=== PATIENT | female | born 1965 | race Caucasian/White ===

== ENCOUNTER → 2017-11-11 11:54 | Outpatient (CLI) | payer OTHER, SELFPAY ==
--- NOTE | 2017-11-11 11:59 | RAD_ITS ---
STUDY: X-RAY CHEST REASON FOR EXAM: Female, 51 years old. Cough TECHNIQUE: PA and lateral views of the chest. COMPARISON: Previous study of 06/07/2016 FINDINGS: There is a 1.0 cm right upper lobe nodule, stable in the interval. There is an additional nodule overlying the anterior cardiac silhouette on the lateral view only measuring approximately 0.9 cm, also stable in the interval. No additional nodules were evident. There is no demonstrated pleural abnormality. Normal size heart. Normal mediastinum and yessy. Normal visualized pulmonary arteries. Normal visualized aortic arch and descending thoracic aorta. There are diffuse degenerative changes of the visualized thoracic spine. A fusion plate is seen in the lower cervical region. There is no demonstrated abnormality of the visualized soft tissue structures of the upper abdomen. RAD/Chest PA and Lateral IMPRESSION: Only 2 nodules are seen on the current study, one located in the right upper lobe and the second overlying the cardiac silhouette on the lateral view. These are stable in the interval. Anterior fusion plate seen in the lower cervical region. There are mild degenerative changes of the thoracic spine. Electronically Signed: Varun Barrow MD at 16:55 EDT , Service support ,
[2017-11-11 15:40] LABS: Anion Gap 8 (5-15); BUN 15 mg/dL (7-18); BUN/Creat Ratio 16.7 RATIO (10-20); Calcium,Total 8.2 mg/dL (8.5-10.1); Chloride 103 mmol/L (98-107); EST Glomerular Filtration Rate 71 mL/min (>60); Est Glom Filt Rate - Afr Amer 85 mL/min (>60); Glucose 95 mg/dL (74-106); Potassium 3.4 mmol/L (3.5-5.1); Sodium Level 138 mmol/L (136-145)
== END ==
PROVIDERS: Family Provider Family Medicine; PCP Family Medicine; Visit Provider Internal Medicine Pulmonary Disease
DX: R05 Cough (principal)
CPT/HCPCS: 36415; 71046; 80048

== ENCOUNTER → 2017-11-11 16:18 | Outpatient (CLI) | payer OTHER, SELFPAY ==
[2017-11-16 11:38] LABS: HPV Reflexed? NOT INDICATED
== END ==
PROVIDERS: Family Provider Family Medicine; PCP Family Medicine; Visit Provider Family Medicine
DX: Z12.4 Encounter for screening for malignant neoplasm of cervix (principal)
CPT/HCPCS: 88175; G0145

== ENCOUNTER → 2017-11-21 16:31 | Outpatient (CLI) | payer OTHER, SELFPAY ==
--- NOTE | 2017-11-21 16:34 | HPBI_ITS ---
MAMMOGRAPHY - BILATERAL SCREENING 3-D VLAD SYNTHESIS REASON FOR EXAM: Female, 51 years old. Bilateral Screening 3-D tomosynthesis PERTINENT HISTORY: Family history of breast carcinoma, sister age 38, mother age 67 and maternal grandmother age 82. TECHNIQUE: 2-D mammograms and 3-D Vlad synthesis of the breast (s) were performed. CAD was performed. COMPARISON: Mammogram 09/21/2016. FINDINGS: The breast composition is heterogeneously dense. Scattered benign calcifications are seen. No dense spiculated masses or suspicious abnormal microcalcification clusters are identified. No architectural distortion is identified. There is no adenopathy, skin thickening or nipple retraction. No significant abnormality noted with tomosynthesis imaging. There has been no significant change since the prior study. HPBI/SCREENING MAMM (CAD), BILAT IMPRESSION: No mammographic signs of malignancy. Routine yearly mammograms recommended. ASSESSMENT CATEGORY: BIRADS Category 2: Benign. A letter regarding these results will be sent to the patient by the facility within 30 days. FOLLOW UP RECOMMENDATION: Yearly follow up mammogram recommended. (A) Approximately 10% of breast cancers are not detected by mammography. A normal mammogram should not delay biopsy of a clinically suspicious abnormality. Electronically Signed: Arpan Gann, at 19:00 EDT Tel , Service support ,
== END ==
PROVIDERS: Family Provider Family Medicine; PCP Family Medicine; Visit Provider Family Medicine
DX: Z12.31 Encounter for screening mammogram for malignant neoplasm of breast (principal)
CPT/HCPCS: 77063; 77067

== ENCOUNTER → 2019-09-11 10:37 | Outpatient (CLI) | payer OTHER, SELFPAY ==
[2019-09-11 12:17] LABS: Absolute Lymphocyte Count 1.93 X10^3/uL (0.83-4.51); Absolute Neutrophil Count 4.7 X10^3/uL (2.0-7.7); Basophil# 0.03 X10^3/uL; Basophil% 0.4 % (0-1); Eosinophil# 0.12 X10^3/uL; Eosinophils% 1.6 % (0-5); Hemoglobin 14.4 g/dL (12.0-15.0); Lymphocyte # 1.93 X10^3/ul (4.0); Lymphocyte % 26.4 % (19-41); Mean Corp Hgb Conc 32.7 g/dL (32-36); Mean Corpuscular Hgb 29.1 pg (27.0-32.0); Mean Corpuscular Volume 89.1 fL (81-99); Mean Platelet Vol. 9.5 fl (6.2-12.0); Monocyte# 0.47 X10^3/uL; Monocyte% 6.4 % (0-10); NRBC Flagged by Analyzer 0 % (0-5); Neutrophil # 4.72 X10^3/uL (2.7-7.7); Neutrophil % 64.8 % (47-70); Platelet Count 310 K/mm3 (150-450); RBC Distribution Width CV 13.3 % (11.6-14.6); RBC Distribution Width SD 43.5 fl (35.1-43.9); Red Blood Count 4.94 M/mm3 (4.2-5.4); White Blood Count 7.3 K/mm3 (4.4-11.0)
[2019-09-11 12:44] LABS: Vitamin B12 447 pg/mL (211-911)
[2019-09-11 12:57] LABS: Anion Gap 6 (5-15); BUN 12 mg/dL (7-18); BUN/Creat Ratio 11.7 RATIO (10-20); Chloride 103 mmol/L (98-107); Creatinine, Serum 1.03 mg/dL (0.55-1.02); EST Glomerular Filtration Rate 60 mL/min (>60); Est Glom Filt Rate - Afr Amer 72 mL/min (>60); Glucose 90 mg/dL (74-106); Potassium 3.8 mmol/L (3.5-5.1); Sodium Level 138 mmol/L (136-145)
== END ==
PROVIDERS: Family Provider Family Medicine; PCP Family Medicine; Referring Provider Family Medicine; Visit Provider Family Medicine
DX: I10 Essential (primary) hypertension (principal); D51.0 Vitamin B12 deficiency anemia due to intrinsic factor deficiency
CPT/HCPCS: 36415; 80048; 82607; 85025

== ENCOUNTER → 2019-09-11 13:39 | Outpatient (CLI) | payer OTHER, SELFPAY ==
--- NOTE | 2019-09-11 13:42 | BI_ITS ---
MAMMOGRAPHY - BILATERAL SCREENING REASON FOR EXAM: Female, 53 years old. Routine annual screening examination. PERTINENT HISTORY: Sister with breast cancer. Mother with breast cancer. Grandmother with breast cancer. TECHNIQUE: Digital bilateral breast vlad (3D mammographic acquisition) in the CC and MLO projections. 2-D mediolateral oblique (MLO) and craniocaudad (CC) views of both breasts were obtained. CAD: Full Field Digital Mammography with Computer Added Detection was performed. COMPARISON: Comparison is made with prior study dated November 21, 2017 and September 21, 2016. FINDINGS: Breast Composition: The breasts are heterogeneously dense, which may obscure small masses. There are no dominant masses or suspicious calcifications. Stable benign appearing bilateral axillary lymph nodes. No other significant abnormalities are identified. There has been no significant change since the prior study. BI/SCREEN MAMM (CAD) W/VLAD BILAT IMPRESSION: Stable bilateral screening mammogram. Yearly follow-up mammogram recommended. (A) ASSESSMENT CATEGORY: BIRADS Category 2: Benign. A letter regarding these results will be sent to the patient by the facility within 30 days. Approximately 10% of breast cancers are not detected by mammography. A normal mammogram should not delay biopsy of a clinically suspicious abnormality. [id number] Electronically Signed: Artis Rodriguez, at 15:10 EST , Service support ,
== END ==
PROVIDERS: Family Provider Family Medicine; PCP Family Medicine; Referring Provider Family Medicine; Visit Provider Family Medicine
DX: Z12.31 Encounter for screening mammogram for malignant neoplasm of breast (principal)
CPT/HCPCS: 77063; 77067

== ENCOUNTER → 2020-11-28 11:46 | Outpatient (CLI) | payer OTHER, SELFPAY ==
[2020-11-28 15:15] LABS: Absolute Lymphocyte Count 1.99 X10^3/uL (0.83-4.51); Absolute Neutrophil Count 3.7 X10^3/uL (2.0-7.7); Basophil# 0.03 X10^3/uL; Basophil% 0.5 % (0-1); Eosinophil# 0.11 X10^3/uL; Eosinophils% 1.8 % (0-5); Hematocrit 41.8 % (37-47); Hemoglobin 13.5 g/dL (12.0-15.0); Lymphocyte # 1.99 X10^3/ul (4.0); Lymphocyte % 31.8 % (19-41); Mean Corp Hgb Conc 32.3 g/dL (32-36); Mean Corpuscular Hgb 29.9 pg (27.0-32.0); Mean Corpuscular Volume 92.7 fL (81-99); Mean Platelet Vol. 9.4 fl (6.2-12.0); Monocyte# 0.41 X10^3/uL; Monocyte% 6.6 % (0-10); NRBC Flagged by Analyzer 0 % (0-5); Neutrophil # 3.67 X10^3/uL (2.7-7.7); Neutrophil % 58.7 % (47-70); Platelet Count 302 K/mm3 (150-450); RBC Distribution Width CV 12.7 % (11.6-14.6); RBC Distribution Width SD 43.7 fl (35.1-43.9); Red Blood Count 4.51 M/mm3 (4.2-5.4); White Blood Count 6.3 K/mm3 (4.4-11.0)
[2020-11-28 15:27] LABS: Anion Gap 7 (5-15); BUN 16 mg/dL (7-18); BUN/Creat Ratio 17.1 RATIO (10-20); Calcium,Total 9.3 mg/dL (8.5-10.1); Chloride 103 mmol/L (98-107); Cholesterol 202 mg/dL (200); Creatinine, Serum 0.94 mg/dL (0.55-1.02); EST Glomerular Filtration Rate 66 mL/min (>60); Est Glom Filt Rate - Afr Amer 80 mL/min (>60); Glucose 99 mg/dL (74-106); High Density Lipoprotein 51 mg/dL; Potassium 3.9 mmol/L (3.5-5.1); Sodium Level 140 mmol/L (136-145); Triglycerides 151 mg/dL; Very Low Density Lipoprotein 30 mg/dL (5-40)
[2020-11-28 15:35] LABS: Vitamin B12 380 pg/mL (211-911)
[2020-11-28 15:52] LABS: Microalbumin,Random Urine < 5.0 mg/L (NO RANGE EST.)
[2020-12-02 17:01] LABS: HPV Reflexed? NOT INDICATED
== END ==
PROVIDERS: PCP Family Medicine; Referring Provider Family Medicine; Visit Provider Family Medicine
DX: I10 Essential (primary) hypertension (principal); D51.0 Vitamin B12 deficiency anemia due to intrinsic factor deficiency
CPT/HCPCS: 36415; 80048; 80061; 82043; 82570; 82607; 85025; 88175; G0145

== ENCOUNTER → 2021-01-23 08:26 | Outpatient (CLI) | payer OTHER, SELFPAY ==
--- NOTE | 2021-01-23 08:28 | BI_ITS ---
MAMMOGRAPHY - BILATERAL SCREENING REASON FOR EXAM: Female, 55 years old. Routine annual screening examination. PERTINENT HISTORY: Sister with breast cancer. Mother with breast cancer. Grandmother with breast cancer. TECHNIQUE: Digital bilateral breast vlad (3D mammographic acquisition) in the CC and MLO projections. 2-D mediolateral oblique (MLO) and craniocaudad (CC) views of both breasts were obtained. CAD: Full Field Digital Mammography with Computer Added Detection was performed. COMPARISON: Comparison is made with prior study dated 09/11/2019 and 11/21/2017. FINDINGS: Breast Composition: The breasts are heterogeneously dense, which may obscure small masses. There are no dominant masses or suspicious calcifications. Stable small bilateral axillary lymph nodes. No other significant abnormalities are identified. There has been no significant change since the prior study. BI/SCRN MAMM (CAD)W/VLAD BILAT IMPRESSION: Stable bilateral screening mammogram. Yearly follow-up mammogram recommended. (A) ASSESSMENT CATEGORY: BIRADS Category 2: Benign. A letter regarding these results will be sent to the patient by the facility within 30 days. Approximately 10% of breast cancers are not detected by mammography. A normal mammogram should not delay biopsy of a clinically suspicious abnormality. [id number] Electronically Signed: Artis Rodriguez MD at 11:02 EDT , Service support ,
== END ==
PROVIDERS: PCP Family Medicine; Referring Provider Family Medicine; Visit Provider Family Medicine
DX: Z12.31 Encounter for screening mammogram for malignant neoplasm of breast (principal)
CPT/HCPCS: 77063; 77067

== ENCOUNTER → 2022-01-29 | Outpatient (CLI) | payer OTHER, SELFPAY ==
--- NOTE | 2022-01-29 15:52 | BI_ITS ---
MAMMOGRAPHY - BILATERAL SCREENING REASON FOR EXAM: Female, 56 years old. Routine annual screening examination. PERTINENT HISTORY: Sister with breast cancer. Mother with breast cancer. Grandmother with breast cancer. TECHNIQUE: Digital bilateral breast viktoria (3D mammographic acquisition) in the CC and MLO projections. 2-D mediolateral oblique (MLO) and craniocaudad (CC) views of both breasts were obtained. CAD: Full Field Digital Mammography with Computer Added Detection was performed. COMPARISON: Comparison is made with prior study dated 01/23/2021 and 09/11/2019 FINDINGS: Breast Composition: The breasts are heterogeneously dense, which may obscure small masses. There are no dominant masses or suspicious calcifications. Stable small benign-appearing axillary lymph nodes. No other significant abnormalities are identified. There has been no significant change since the prior study. BI/SCREENING MAMM (CAD), BILAT IMPRESSION: Stable bilateral screening mammogram. Yearly follow-up mammogram recommended. (A) ASSESSMENT CATEGORY: BIRADS Category 2: Benign. A letter regarding these results will be sent to the patient by the facility within 30 days. Approximately 10% of breast cancers are not detected by mammography. A normal mammogram should not delay biopsy of a clinically suspicious abnormality. [id number] Electronically Signed: Artis Rodriguez MD at 8:09 EDT ,
== END | disposition home or self-care (01) ==
LOC: OPBI 15:51
PROVIDERS: PCP Family Medicine; Referring Provider Family Medicine; Visit Provider Family Medicine
DX: Z12.31 Encounter for screening mammogram for malignant neoplasm of breast (principal); Z80.3 Family history of malignant neoplasm of breast
CPT/HCPCS: 77067

== ENCOUNTER 2023-01-31 20:16 | Observation (INO) | payer OTHER, SELFPAY ==
[2023-01-31] VITALS (11 sets, daily range): BP systolic 104–167; BP diastolic 67–95; PULSE 80–106; RESP 14–18; TEMP 36.6–36.7; O2SAT 94–99; BMI 37.1
--- NOTE | 2023-01-31 20:37 | CT_ITS ---
INDICATION: rectal bleeding EXAMINATION: CT ABDOMEN AND PELVIS WITH CONTRAST - CT Abdomen And Pelvis W/ Contrast Injection TECHNIQUE: Helically acquired images were obtained of the abdomen and pelvis following IV contrast. A radiation dose optimization technique was used for this scan. IV Contrast dosage and agent: 100 cc of Isovue-[id number]. Oral contrast: None. COMPARISON: September 22, 2017 CT abdomen and pelvis. FINDINGS: LOWER CHEST: 1 mm partially calcified granuloma lingula was present on the 2018 exam and represents a benign finding. There are a few pulmonary cysts seen in the bilateral lower lobes, also unchanged compared to prior CT abdomen and pelvis from 2018. These the heart is normal size. No pericardial effusion. Distal esophagus is normal in appearance. Extrathoracic soft tissues of the lower chest are within normal limits. LIVER: Homogeneous. No focal mass. GALLBLADDER AND BILIARY TREE: No calcified gallstones. No gallbladder distension or wall edema. No intra- or extrahepatic biliary ductal dilation. PANCREAS: No focal cystic or solid mass. SPLEEN: Normal size without focal cystic or solid mass. 10mm diameter calcification in the splenic hilum likely represents a small calcified aneurysm. ADRENAL GLANDS: No nodules. KIDNEYS, URETERS and BLADDER: Cortical defect in superior pole right kidney suggesting remote infection and/or trauma. Early excretion of contrast bilaterally versus less likely calcifications superior pole right kidney. Bladder is unremarkable. PERITONEUM: No ascites or free air. No other fluid collection. BOWEL: No evidence of acute appendicitis. No abnormally distended bowel loops or air fluid levels. No wall thickening or mass. No focal inflammatory changes. Anastomotic sutures seen in the ascending right colon. Scattered diverticuli seen in the sigmoid colon. No active inflammation. LYMPH NODES: No enlarged mesenteric or retroperitoneal lymph nodes. VESSELS: Aorta is non-dilated. REPRODUCTIVE ORGANS: Female pelvic organs are within normal limits of the exam. ABDOMINAL WALL: No discrete abdominal or pelvic wall hernia. BONES: No lytic or blastic abnormality. Degenerative changes spine, most notably at L5-S1. CT/Abdomen/Pelvis W IV Cont ONLY IMPRESSION: Sigmoid colon diverticulosis without diverticulitis. Anastomotic sutures descending right colon. No acute intra-abdominal pathology. Electronically Signed: Manoj Sparks DO at 22:21 EDT ,
--- NOTE | 2023-01-31 20:38 | ED.VIS.GI ---
HPI HPI - GI History of Present Illness Chief Complaint: GI Bleed Detail of Chief Complaint: Rectal bleeding Informant: patient Narrative Narrative: Patient presents to the emergency department complaint of rectal bleeding that started today. Patient has had 2 episodes since 6:00. She describes some mild abdominal discomfort. She does have a remote history of diverticulitis. No family history of Crohn's or ulcerative colitis. She is not on blood thinners. She denies any injury or trauma to her abdomen. Last colonoscopy was 5 years ago. [facility] Medical History (Updated 01/31/23 @ 22:[address] Mario Lange, ) Diverticulosis Small bowel obstruction Home Medications cyanocobalamin (vitamin B-12) 1,000 mcg/mL injection solution 1,000 mcg IM Q30D 05/17/17 [History Last Taken Unknown] escitalopram oxalate 20 mg tablet 20 mg PO DAILY 05/17/17 [History Last Taken 05/25/17 08:00] hydrochlorothiazide 25 mg tablet 25 mg PO DAILY 05/17/17 [History Last Taken Unknown] Allergy/AdvReac Type Severity Reaction Status Date / Time cephalexin [From Keflex] Allergy Hives Verified 01/31/23 20:18 cyclobenzaprine Allergy Itching Verified 01/31/23 20:18 [From Flexeril] erythromycin base Allergy Rash Verified 01/31/23 20:18 Penicillins [PCN] Allergy Hives Verified 01/31/23 20:18 hydrocodone [From Vicodin] AdvReac Upset Verified 01/31/23 20:18 Stomach Social History Smoking Status: Former smoker ROS ROS ED Review of Systems ROS Unobtainable: other Constitutional Constitutional ED: Reports lethargy; Denies chills, fever(s), sweats or weight loss Eyes Eyes: Denies blurry vision, change in vision or diplopia ENT ENT ED: Denies rhinorrhea or sore throat Cardiovascular Cardiovascular: Denies chest pain, orthopnea or racing heartbeat Respiratory/Chest Respiratory/Chest: Denies cough, dyspnea, dyspnea on exertion, orthopnea or sputum Gastrointestinal Gastrointestinal: Reports abdominal pain and other Details: Bright red blood per rectum ; Denies diarrhea, nausea or vomiting Genitourinary Genitourinary ED: Denies dysuria, hematuria or urinary frequency Musculoskeletal Musculoskeletal: Denies arthralgias, back pain, myalgias or neck pain Integumentary Denies abscess, Abrasions or rash Neurologic Neurologic: Denies headache(s) or weakness Psychiatric Psychiatric: Denies anxiety, depression or suicidal thoughts Endocrine Endocrinology: Denies polydipsia, polyphagia or polyuria Hematologic/Lymphatic Hematologic/Lymphatic: Denies easy bleeding, easy bruising or lymphadenopathy Allergic/Immunologic Allergic/Immunologic ED: Denies mouth swelling, tongue swelling or urticaria EXAM Physical Exam Const Vital Signs: 01/31/23 20:18 01/31/23 21:56 Temperature 98 F Temperature Source Temporal Pulse Rate 106 H Pulse Rate [Lying] 90 Pulse Rate [Sitting (for 1 minute prior to obtaining)] 80 Respiratory Rate 14 Blood Pressure 167/95 H Blood Pressure [Lying] 113/73 Blood Pressure [Sitting (for 1 minute prior to obtaining)] 119/67 Blood Pressure [Standing (for 1 minute prior to obtaining)] 104/72 Blood Pressure Mean 119 Blood Pressure Mean [Lying] 86 Blood Pressure Mean [Sitting (for 1 minute prior to obtaining)] 84 Blood Pressure Mean [Standing (for 1 minute prior to obtaining)] 82 Pulse Ox 97 Oxygen Delivery Method Room Air Positive well nourished and well developed General Appearance ED: well developed and NAD HEENT Reports TM's clear and moist mucous membranes normocephalic and atraumatic; Negative for trauma or tenderness Tympanic Membrane ED: Yes TM's clear Eyes PERRL and EOMs intact bilaterally General Eye ED: Negative for pale conjunctiva or scleral icterus Neck no lymphadenopathy, supple and no JVD General: Negative for tenderness Chest Wall inspection of chest normal and palpation of chest normal Chest: Negative for tenderness Resp normal respiratory effort and clear to auscultation bilaterally Effort and Inspection: Negative for respiratory distress or pain with movement Auscultation: Negative for rhonchi, wheezes or diminished lung sounds Cardio regular rate, regular rhythm, S1 normal heart sound, S2 normal heart sound and no murmurs Peripheral Pulses: pulses 2+ throughout GI normal to inspection, nondistended, normoactive bowel sounds, soft to palpation, non-tender, non-distended and no masses GI Narrative: Rectal exam performed there were no fissures or hemorrhoids noted. She had maroon-colored stool on exam. No masses palpated Back/Spine no CVA tenderness and no thoracic nor lumbar tenderness Extremity normal to inspection General Extremety ED: Negative for edema General Extremity: Negative for edema Neuro oriented x3, CN's II-XII intact bilaterally, no sensory deficits noted and gait normal Sensorium / Orientation: awake, alert, oriented to person, oriented to place and oriented to time Motor Exam: strength 5/5 throughout and strength abnormal Psych mental status grossly normal Skin no rashes or lesions noted and no wounds MDM MDM MDM Narrative Medical decision making narrative: Presents with rectal bleeding x3 that feel toilet bowl. Patient with history of diverticulitis. Having minimal abdominal discomfort. IV line established on arrival. CBC with differential obtained showed a white count of 10.7 with a hemoglobin 13.2 and platelet count of 379. Chemistries unremarkable. Lactate was slightly elevated 2.3. Orthostatic vital signs were negative. CT scan of the abdomen pelvis with IV contrast obtained showed sigmoid diverticulosis without diverticulitis. Case discussed with GI on-call Dr. Ponce. Also discussed with hospitalist to evaluate patient for admission. I feel it would be reasonable to admit for least observation. Patient did have a episode of bright red blood per rectum while in the department and afterwards became very diaphoretic and lightheaded. Lab Data Attestation: I reviewed the patient's lab results. Labs: Laboratory Results - last 24 hr 01/31/23 01/31/23 01/31/23 20:50 20:50 20:50 WBC 10.7 RBC 4.34 Hgb 13.2 Hct 38.4 MCV 88.5 MCH 30.4 MCHC 34.4 RDW Std Deviation 42.4 RDW Coeff of Karthik 13.1 Plt Count 379 MPV 9.8 Immature Gran % (Auto) 0.600 Neut % (Auto) 62.8 Lymph % (Auto) 27.4 [place] % (Auto) 6.9 Eos % (Auto) 1.7 Baso % (Auto) 0.6 Absolute Neuts (auto) 6.7 Absolute Lymphs (auto) 2.92 Nucleated RBC % 0 Sodium 141 Potassium 3.8 Chloride 108 H Carbon Dioxide 25.0 Anion Gap 8 BUN 15 Creatinine 1.23 H Estim Creat Clear Calc 47.81 Est GFR (MDRD) Af Amer 58 L Est GFR (MDRD) Non-Af 48 L BUN/Creatinine Ratio 12.2 Glucose 123 H Lactic Acid 2.3 H* Calcium 8.2 L Radiography Diagnostic Testing: Clinical Impression(s) from Imaging Studies Abdomen/Pelvis CT 01/31/23 20:37 IMPRESSION: Sigmoid colon diverticulosis without diverticulitis. Anastomotic sutures descending right colon. No acute intra-abdominal pathology. Electronically Signed: Manoj Sparks DO at 22:21 EDT , Discharge Plan Triage Chief Complaint: GI Bleed ED Provider: Mario Lange Dx/Rx/DC Orders Clinical Impression: Acute lower gastrointestinal bleeding, History of hypertension, Acidosis, lactic, History of diverticulitis Instructions: ED Lower GI Bleeding (Stable) Prescriptions: No Action cyanocobalamin (vitamin B-12) 1,000 MCG/ML solution 1,000 mcg IM Q30D Label Comments: PERNICIOUS ANEMIA hydrochlorothiazide 25 MG tablet 25 mg PO DAILY Label Comments: HTN escitalopram oxalate 20 MG tablet 20 mg PO DAILY Label Comments: ANXIETY Primary Care Provider: Janine Bolton Referrals: Janine Bolton MD [Primary Care Provider] - Disposition Disposition: Acute Care Hospital [facility]
[2023-01-31] MEDS: 0.9% Normal Saline 1,000 ML 125 ML IV (20:55)
[2023-01-31 21:12] LABS: Absolute Lymphocyte Count 2.92 X10^3/uL (0.83-4.51); Absolute Neutrophil Count 6.7 X10^3/uL (2.0-7.7); Basophil# 0.06 X10^3/uL; Basophil% 0.6 % (0-1); Eosinophil# 0.18 X10^3/uL; Eosinophils% 1.7 % (0-5); Hematocrit 38.4 % (37-47); Hemoglobin 13.2 g/dL (12.0-15.0); Lymphocyte # 2.92 X10^3/ul (0.83-4.51); Lymphocyte % 27.4 % (19-41); Mean Corp Hgb Conc 34.4 g/dL (32-36); Mean Corpuscular Hgb 30.4 pg (27.0-32.0); Mean Corpuscular Volume 88.5 fL (81-99); Mean Platelet Vol. 9.8 fl (6.2-12.0); Monocyte# 0.73 X10^3/uL; Monocyte% 6.9 % (0-10); NRBC Flagged by Analyzer 0 % (0-5); Neutrophil % 62.8 % (47-70); Platelet Count 379 K/mm3 (150-450); RBC Distribution Width CV 13.1 % (11.6-14.6); RBC Distribution Width SD 42.4 fl (35.1-43.9); Red Blood Count 4.34 M/mm3 (4.2-5.4); White Blood Count 10.7 K/mm3 (4.4-11.0)
[2023-01-31 21:29] LABS: Anion Gap 8 (5-15); BUN 15 mg/dL (7-18); BUN/Creat Ratio 12.2 RATIO (10-20); Calcium,Total 8.2 mg/dL (8.5-10.1); Chloride 108 mmol/L (98-107); Creatinine, Serum 1.23 mg/dL (0.55-1.02); EST Glomerular Filtration Rate 48 mL/min (>60); Est Glom Filt Rate - Afr Amer 58 mL/min (>60); Estimated Creatinine Clearance 47.81 ml/min; Glucose 123 mg/dL (74-106); Potassium 3.8 mmol/L (3.5-5.1); Sodium Level 141 mmol/L (136-145)
[2023-01-31 21:33] LABS: Lactic Acid 2.3 mmol/L (0.4-1.9)
--- NOTE | 2023-01-31 23:03 | PCM.HP.STD ---
HPI - General General Date of Admission: 01/31/23 Date of Service: 01/31/23 Chief Complaint: Bright red blood per rectum HPI Narrative DOMINIC WINSTON, is a 57 F with a significant history of hypertension; diverticulitis; appendectomy; bowel obstruction who presents to the emergency department with bright red blood per rectum that started about 2 hours before presentation. At home patient had two episodes of bright red blood per rectum. She reported that she had small stools that was mixed large blood. At the emergency department she had two more episodes of hematochezia. With his hematochezia the emergency department patient became lightheaded and diaphoretic. Before his symptoms of hematochezia started he had abdominal discomfort. He denies any nausea or vomiting. Incidentally patient went to his PCPs office on the same day of presentation for routine physicals. At the PCPs appointment patient was advised that it was time for him to have a repeat colonoscopy since the last one was 5 years ago. Reportedly the last colonoscopy she had some benign tumors that were removed. A referral was sent to Dr. Cortez GI specialist and patient is waiting for an appointment for colonoscopy. Emergency Department doctor reports maroon stools on rectal examination; and without any other significant gross pathology. Emergency Department doctor discussed the case with industrial laborer, Dr. Ponce and the plan is to observe patient at the hospital and trend H&H. [facility] Medical History Diverticulosis Small bowel obstruction Home Medications cyanocobalamin (vitamin B-12) 1,000 mcg/mL injection solution 1,000 mcg IM Q30D 05/17/17 [History Last Taken Unknown] escitalopram oxalate 20 mg tablet 20 mg PO DAILY 05/17/17 [History Last Taken 05/25/17 08:00] hydrochlorothiazide 25 mg tablet 25 mg PO DAILY 05/17/17 [History Last Taken Unknown] Allergy/AdvReac Type Severity Reaction Status Date / Time cephalexin [From Keflex] Allergy Hives Verified 01/31/23 20:18 cyclobenzaprine Allergy Itching Verified 01/31/23 20:18 [From Flexeril] erythromycin base Allergy Rash Verified 01/31/23 20:18 Penicillins [PCN] Allergy Hives Verified 01/31/23 20:18 hydrocodone [From Vicodin] AdvReac Upset Verified 01/31/23 20:18 Stomach Family History Other Breast cancer Dementia Esophageal cancer Heart disease Rheumatoid arthritis Thyroid disorder Surgical History Hx of appendectomy Social History Smoking Status: Former smoker ROS ROS Narrative Pertinent positives and pertinent negatives as noted in HPI. All other systems were reviewed and are negative Vital Signs Vital Signs Vital Signs: 01/31/23 20:18 01/31/23 21:56 Temperature 98 F Temperature Source Temporal Pulse Rate 106 H Pulse Rate [Lying] 90 Pulse Rate [Sitting (for 1 minute prior to obtaining)] 80 Respiratory Rate 14 Blood Pressure 167/95 H Blood Pressure [Lying] 113/73 Blood Pressure [Sitting (for 1 minute prior to obtaining)] 119/67 Blood Pressure [Standing (for 1 minute prior to obtaining)] 104/72 Blood Pressure Mean 119 Blood Pressure Mean [Lying] 86 Blood Pressure Mean [Sitting (for 1 minute prior to obtaining)] 84 Blood Pressure Mean [Standing (for 1 minute prior to obtaining)] 82 Pulse Ox 97 Oxygen Delivery Method Room Air Weight Weight: 104.4 kg Body Mass Index (BMI) 37.1 Physical Exam Narrative Physical exam: General: Well-nourished, well-developed. Head: Normocephalic, atraumatic, no tenderness Eyes: Vision is grossly intact. EOMI ENT, no trauma, moist mucous membranes, no rhinorrhea Neck: Nontender, No thyromegaly. CVS: Regular rate and rhythm. S1-S2 present. No murmur, gallop or rub. Respiratory : clear to auscultation bilaterally, chest wall nontender Abdomen: Soft, nontender, nondistended, normal bowel sounds, no masses : Deferred Back: Nontender, no CVA tenderness, no midline spinal tenderness, deformities, step-offs Extremities: Nontender full range of motion, no trauma Skin: Normal color, no trauma, abrasions Neuro: Alert, oriented, cranial nerves II through XII grossly intact. Psychiatry: Normal mood. Normal affect. Not depressed. Not anxious. Results Lab / Micro Data Result Diagrams: 01/31/23 20:50 01/31/23 20:50 Labs: Laboratory Results - last 24 hr 01/31/23 20:50: WBC 10.7, RBC 4.34, Hgb 13.2, Hct 38.4, MCV 88.5, MCH 30.4, MCHC 34.4, RDW Std Deviation 42.4, RDW Coeff of Karthik 13.1, Plt Count 379, MPV 9.8, Immature Gran % (Auto) 0.600, Neut % (Auto) 62.8, Lymph % (Auto) 27.4, [place] % (Auto) 6.9, Eos % (Auto) 1.7, Baso % (Auto) 0.6, Absolute Neuts (auto) 6.7, Absolute Lymphs (auto) 2.92, Nucleated RBC % 0 01/31/23 20:50: Sodium 141, Potassium 3.8, Chloride 108 H, Carbon Dioxide 25.0, Anion Gap 8, BUN 15, Creatinine 1.23 H, Estim Creat Clear Calc 47.81, Est GFR (MDRD) Af Amer 58 L, Est GFR (MDRD) Non-Af 48 L, BUN/Creatinine Ratio 12.2, Glucose 123 H, Calcium 8.2 L 01/31/23 20:50: Lactic Acid 2.3 H* Radiology Impression Abdomen/Pelvis CT 01/31/23 20:37 IMPRESSION: Sigmoid colon diverticulosis without diverticulitis. Anastomotic sutures descending right colon. No acute intra-abdominal pathology. Electronically Signed: Manoj Sparks DO at 22:21 EDT , Assessment & Plan Assessment/Plan (1) Acute lower gastrointestinal bleeding: (2) Diverticular hemorrhage: (3) History of hypertension: (4) Acidosis, lactic: PLAN: Plan Acute lower gastrointestinal bleeding/acute diverticular bleeding Impression of abdominal/pelvis CT radiologist: Sigmoid colon diverticulosis without diverticulitis. ? Anastomotic sutures descending right colon. ? No acute intra-abdominal pathology. Hospitalist independent interpretation of abdominal/pelvis CT: Agrees with radiology interpretation. Hemoglobin on presentation was 13.2, trend. Review of old records shows that in 2019 and 2021 hemoglobin was 14.4 and 13.5 respectively. Gentle IV hydration ordered. Keep n.p.o. after midnight. If hematochezia persists consider GI consult. Hypertension Blood pressure is stable Hold hydrochlorothiazide. As needed hydralazine ordered. Trend blood pressure and adjust blood pressure medications. History of depression Stable Lisinopril continued. DVT prophylaxis: SCDs ordered Charges/Coding Visit Charges Inpatient E&M: 43959 Init Hosp L3
[2023-02-01 00:08] VITALS: BP 127/80; PULSE 84; RESP 16; TEMP 36.3; O2SAT 97
[2023-02-01 00:20] VITALS: BMI 37.1
[2023-02-01] MEDS: 0.9% Normal Saline 1,000 ML 100 ML IV ×3 (00:51→20:17)
[2023-02-01 00:59] LABS: Reflex Lactate? Y
[2023-02-01 01:45] LABS: Hematocrit 33.2 % (37-47); Hemoglobin 10.7 g/dL (12.0-15.0)
[2023-02-01 02:15] LABS: Lactic Acid 1.8 mmol/L (0.4-1.9)
--- NOTE | 2023-02-01 06:00 | EKG12_ITS ---
Test Reason : PRE-OP Blood Pressure : / mmHG Vent. Rate : 078 BPM Atrial Rate : 078 BPM P-R Int : 188 ms QRS Dur : 086 ms QT Int : 390 ms P-R-T Axes : 034 035 043 degrees QTc Int : 444 ms Normal sinus rhythm Normal ECG When compared with ECG of 24-FEB-2000 13:18, No significant change was found Confirmed by ADRIANNE VILLEGAS, KHRIS ([id number]), tape editor KIKA LANDON ([id number]) on 02/02/2023 9:44:23 AM Referred By: SHUN Confirmed By:KHRIS SILVER MD
[2023-02-01 06:40] VITALS: BP 131/84; PULSE 80; RESP 16; TEMP 36.7; O2SAT 100
[2023-02-01 07:43] LABS: Absolute Lymphocyte Count 2.31 X10^3/uL (0.83-4.51); Absolute Neutrophil Count 5.4 X10^3/uL (2.0-7.7); Basophil# 0.03 X10^3/uL; Basophil% 0.4 % (0-1); Eosinophil# 0.13 X10^3/uL; Eosinophils% 1.5 % (0-5); Hematocrit 33.4 % (37-47); Hemoglobin 10.6 g/dL (12.0-15.0); Lymphocyte # 2.31 X10^3/ul (0.83-4.51); Lymphocyte % 27.4 % (19-41); Mean Corp Hgb Conc 31.7 g/dL (32-36); Mean Corpuscular Hgb 28.8 pg (27.0-32.0); Mean Corpuscular Volume 90.8 fL (81-99); Mean Platelet Vol. 9.3 fl (6.2-12.0); Monocyte# 0.49 X10^3/uL; Monocyte% 5.8 % (0-10); NRBC Flagged by Analyzer 0 % (0-5); Neutrophil # 5.43 X10^3/uL (2.7-7.7); Neutrophil % 64.3 % (47-70); Platelet Count 259 K/mm3 (150-450); RBC Distribution Width CV 13.4 % (11.6-14.6); RBC Distribution Width SD 44.2 fl (35.1-43.9); Red Blood Count 3.68 M/mm3 (4.2-5.4); White Blood Count 8.4 K/mm3 (4.4-11.0)
[2023-02-01 08:20] LABS: AST(SGOT) 12 U/L (15-37); Alanine Aminotransfer ALT/SGPT 20 U/L (13-56); Albumin, Serum 3.1 g/dL (3.2-5.0); Alkaline Phosphatase 65 U/L (45-117); Bilirubin, Direct 0.11 mg/dL (0.00-0.30); Globulin 2.9 g/dL (2.2-4.2)
--- NOTE | 2023-02-01 12:00 | PCM.PN.HOSP ---
Subjective Subjective Doing well, no further bloody bowel movements overnight. She does have some mild abdominal cramping but no significant pain Objective Data Objective Data Vital Signs: Vital Signs Temp Pulse Resp BP Pulse Ox O2 Del Method 98.1 F 80 16 131/84 H 100 Room Air 02/01/23 06:40 02/01/23 06:40 02/01/23 06:40 02/01/23 06:40 02/01/23 06:40 02/01/23 09:57 Oxygen Delivery Method Room Air Weight: 230 lb 2.601 oz Body Mass Index (BMI) 37.1 Intake & Output: Intake and Output for Last 24 Hours 01/31/23 02/01/23 02/02/23 03:59 03:59 03:59 Intake Total 406.25 / 406.25 1000 / 1000 Balance 406.25 / 406.25 1000 / 1000 Lab / Micro Data Result Diagrams: 02/01/23 07:25 01/31/23 20:50 Labs: Laboratory Results - last 24 hr 01/31/23 20:50: WBC 10.7, RBC 4.34, Hgb 13.2, Hct 38.4, MCV 88.5, MCH 30.4, MCHC 34.4, RDW Std Deviation 42.4, RDW Coeff of Karthik 13.1, Plt Count 379, MPV 9.8, Immature Gran % (Auto) 0.600, Neut % (Auto) 62.8, Lymph % (Auto) 27.4, [place] % (Auto) 6.9, Eos % (Auto) 1.7, Baso % (Auto) 0.6, Absolute Neuts (auto) 6.7, Absolute Lymphs (auto) 2.92, Nucleated RBC % 0 01/31/23 20:50: Sodium 141, Potassium 3.8, Chloride 108 H, Carbon Dioxide 25.0, Anion Gap 8, BUN 15, Creatinine 1.23 H, Estim Creat Clear Calc 47.81, Est GFR (MDRD) Af Amer 58 L, Est GFR (MDRD) Non-Af 48 L, BUN/Creatinine Ratio 12.2, Glucose 123 H, Calcium 8.2 L 01/31/23 20:50: Lactic Acid 2.3 H* 02/01/23 00:30: Hgb 10.7 L, Hct 33.2 L 02/01/23 00:30: Lactic Acid 1.8 02/01/23 07:25: WBC 8.4, RBC 3.68 L, Hgb 10.6 L, Hct 33.4 L, MCV 90.8, MCH 28.8, MCHC 31.7 L D, RDW Std Deviation 44.2 H, RDW Coeff of Karthik 13.4, Plt Count 259, MPV 9.3, Immature Gran % (Auto) 0.600, Neut % (Auto) 64.3, Lymph % (Auto) 27.4, [place] % (Auto) 5.8, Eos % (Auto) 1.5, Baso % (Auto) 0.4, Absolute Neuts (auto) 5.4, Absolute Lymphs (auto) 2.31, Nucleated RBC % 0 02/01/23 07:25: Total Bilirubin 0.40, Direct Bilirubin 0.11, AST 12 L, ALT 20, Alkaline Phosphatase 65, Total Protein 6.0 L, Albumin 3.1 L, Globulin 2.9 Radiography Diagnostic Testing: Radiology Impression Abdomen/Pelvis CT 01/31/23 20:37 IMPRESSION: Sigmoid colon diverticulosis without diverticulitis. Anastomotic sutures descending right colon. No acute intra-abdominal pathology. Electronically Signed: Manoj Sparks DO at 22:21 EDT , Physical Exam Narrative General: Alert, Oriented x3, Cooperative, No apparent distress HEENT: Atraumatic, PERRLA, EOMI, Normocephalic Oral: Moist Mucosa Neck: Supple, No JVD Lungs: Clear to auscultation, Normal air movement, No rhonchi, No wheeze, No rales Cardiovascular: Regular rate, Regular Rhythm, Normal S1, Normal S2, No murmurs Abdomen: Soft, Non Tender, Non-Distended, No Hepato-splenomegaly Extremities: No edema, Capillary Refill Less than 3 Seconds Skin: No rashes, No breakdown Musculoskeletal: No Tenderness to Palpation of Joints or Extremities Neurological: Cranial nerves II-XII grossly intact, Motor Exam 5/5 strength throughout, Sensory exam intact to light touch and pain Psych/Mental Status: Normal Affect, Appropriate Assessment & Plan Assessment/Plan (1) Acute lower gastrointestinal bleeding: (2) Diverticular hemorrhage: (3) History of hypertension: (4) Acidosis, lactic: PLAN: Plan 1. Lower GI bleed ? This is likely consistent with a diverticular bleed versus an AVM ? Hemoglobin dropped several grams but it appears to be stable ? She has been referred for an outpatient colonoscopy though she has not set the date ? We will repeat hemoglobin at 2 PM to monitor stability 2. Hypertension ? Blood pressures are stable ? Can resume hydrochlorothiazide 3. Anxiety/depression ? Stable ? Continue with escitalopram DVT: SCDs Charges/Coding Visit Charges Inpatient E&M: 95434 Subs Hosp L2
--- NOTE | 2023-02-01 12:21 | PCM.PN.HOSP ---
Reason for Visit Reason for Visit: Diagnoses Acidosis, unspecified (01/31/23) Diverticulosis of large intestine without perforation or abscess with bleeding (01/31/23) Gastrointestinal hemorrhage, unspecified (01/31/23) Personal history of other diseases of the circulatory system (01/31/23) Subjective Subjective Alert and pleasant. Reported last trip to bathroom this morning that only blood present was on toilet paper from wiping. States complaints of feeling bloated with diffuse cramping, denies pain. Objective Data Objective Data Vital Signs: Vital Signs Temp Pulse Resp BP Pulse Ox O2 Del Method 98.1 F 80 16 131/84 H 100 Room Air 02/01/23 06:40 02/01/23 06:40 02/01/23 06:40 02/01/23 06:40 02/01/23 06:40 02/01/23 09:57 Oxygen Delivery Method Room Air Weight: 104.4 kg Body Mass Index (BMI) 37.1 Intake & Output: Intake and Output for Last 24 Hours 01/30/23 01/31/23 02/01/23 23:59 23:59 23:59 Intake Total 1406.25 / 1406.25 Balance 1406.25 / 1406.25 Lab / Micro Data Attestation: I reviewed the patient's lab results. Result Diagrams: 02/01/23 13:43 01/31/23 20:50 Labs: Laboratory Results - last 24 hr 01/31/23 20:50: WBC 10.7, RBC 4.34, Hgb 13.2, Hct 38.4, MCV 88.5, MCH 30.4, MCHC 34.4, RDW Std Deviation 42.4, RDW Coeff of Karthik 13.1, Plt Count 379, MPV 9.8, Immature Gran % (Auto) 0.600, Neut % (Auto) 62.8, Lymph % (Auto) 27.4, [place] % (Auto) 6.9, Eos % (Auto) 1.7, Baso % (Auto) 0.6, Absolute Neuts (auto) 6.7, Absolute Lymphs (auto) 2.92, Nucleated RBC % 0 01/31/23 20:50: Sodium 141, Potassium 3.8, Chloride 108 H, Carbon Dioxide 25.0, Anion Gap 8, BUN 15, Creatinine 1.23 H, Estim Creat Clear Calc 47.81, Est GFR (MDRD) Af Amer 58 L, Est GFR (MDRD) Non-Af 48 L, BUN/Creatinine Ratio 12.2, Glucose 123 H, Calcium 8.2 L 01/31/23 20:50: Lactic Acid 2.3 H* 02/01/23 00:30: Hgb 10.7 L, Hct 33.2 L 02/01/23 00:30: Lactic Acid 1.8 02/01/23 07:25: WBC 8.4, RBC 3.68 L, Hgb 10.6 L, Hct 33.4 L, MCV 90.8, MCH 28.8, MCHC 31.7 L D, RDW Std Deviation 44.2 H, RDW Coeff of Karthik 13.4, Plt Count 259, MPV 9.3, Immature Gran % (Auto) 0.600, Neut % (Auto) 64.3, Lymph % (Auto) 27.4, [place] % (Auto) 5.8, Eos % (Auto) 1.5, Baso % (Auto) 0.4, Absolute Neuts (auto) 5.4, Absolute Lymphs (auto) 2.31, Nucleated RBC % 0 02/01/23 07:25: Total Bilirubin 0.40, Direct Bilirubin 0.11, AST 12 L, ALT 20, Alkaline Phosphatase 65, Total Protein 6.0 L, Albumin 3.1 L, Globulin 2.9 Radiography Diagnostic Testing: Radiology Impression Abdomen/Pelvis CT 01/31/23 20:37 IMPRESSION: Sigmoid colon diverticulosis without diverticulitis. Anastomotic sutures descending right colon. No acute intra-abdominal pathology. Electronically Signed: Manoj Sparks DO at 22:21 EDT , Physical Exam Const alert, oriented x3 and no apparent distress HEENT head/scalp atraumatic and moist oral mucous membranes Eyes PERRL and EOMs intact bilaterally Neck supple and no JVD Resp normal respiratory effort, no retractions, no use of accessory muscles and clear to auscultation bilaterally Cardio regular rate, regular rhythm, S1 normal heart sound, S2 normal heart sound, no murmurs, no rub and no gallops GI GI Narrative: Abdomen normal to inspection, normoactive bowel sounds, softly distended, slight tenderness with palpation to outer boundaries of abdomen, no hepatosplenomegaly. Extremity Extremity Narrative: No edema, full ROM, capillary refill less than 3 seconds. Skin Skin Narrative: No rashes. No breakdown. Neuro Neuro Narrative: Cranial nerves II-XII grossly intact, Motor Exam 5/5 strength throughout, Sensory exam intact to light touch and pain Psych Psych Narrative: Normal affect and appropriate. Assessment & Plan Assessment/Plan (1) Acute lower gastrointestinal bleeding: PLAN: Plan Assessment 1. Acute lower gastrointestinal bleeding/Diverticular hemorrhage 2. Acidosis, lactic 3. History of hypertension 4. History of vitamin B-12 deficiency 5. History of anxiety/depression Plan 1. Lower GI Bleed - bleeding noted to have been maroon/brighter red in color, no localized areas of pain/discomfort - hemoglobin dropped 2.5gm from ER admission to timed recheck 3.5hrs later, but then stabilized at 0725. - rechecking hemoglobin level at 1400 today - she was referred previously by PCP for routine colonoscopy, but date had not yet been set; she is in the process of calling her previous GI consult to explain current events in attempt to get a colonoscopy date sooner rather than later. 2. Lactic acidosis - corrected with IVF infusion - no s/sx of infection/septicemia, no elevated WBCs at this time 3. Hypertension - SBPs are trending 113-142mmHg - ok to continue home regimen of hydrochlorothiazide 4. B-12 deficiency - home regimen of cyanocobalamin on hold d/t acute GIB event 5. Anxiety/depression - continue home regimen with escitalopram DVT: SCDs
[2023-02-01] MEDS: Escitalopram Oxalate 20 MG Tablet PO (13:47)
[2023-02-01 13:48] LABS: Hematocrit 31.7 % (37-47); Hemoglobin 10.3 g/dL (12.0-15.0)
--- NOTE | 2023-02-01 13:52 | CHAPLAIN ---
Type of Pastoral Visit _x__ Initial Visit ___ Follow-up Visit ___ On-call Visit ___ General Patient Visit ___ Spiritual Assessment ___ Family Conference ___ Bereavement ___ Rapid Response ___ Code Blue ___ Other (describe below) Pastoral Care Referral From _x__ Patient ___ Family ___ Nurse ___ Physician ___ International Trade Manager ___ Car Dumper ___ Other (describe below) Sacrament/Intervention _x__ Active listening ___ Anointing ___ Moravian ___ Bereavement ___ Communion ___ Rosemarie exploration ___ ___ Life review _x__ Prayer ___ Reconciliation ___ Sacrament of Sick ___ Supportive presence ___ Wedding ___ Other (describe below) Pastoral Comments patient was welcoming and presented with a positive attitude; pt is waiting on more test results; pt states that it is up to God and that she is not in control; pt desires for prayers to be given for her healing and this is granted; pleasant casual conversation otherwise
[2023-02-01 13:58] VITALS: BP 142/81; PULSE 80; RESP 16; TEMP 37.2; O2SAT 100
[2023-02-01] MEDS: Electrolyte Solution/Peg's 4000 ML 2000 ML PO (17:22)
[2023-02-01 18:00] VITALS: BP 134/70; PULSE 74; RESP 18; TEMP 37; O2SAT 100
--- NOTE | 2023-02-01 18:03 | CON.PCM.GI_ITS ---
HPI Consult Data Date of Consult: 02/01/23 HPI Narrative Reason for Consultation: GI bleed HPI Narrative: DOMINIC WINSTON, is a 57 F who presents with lower GI bleeding. She has a past medical history of acute appendicitis status post appendectomy with an abscess that adhered to the right colon status post right hemicolectomy with primary anastomosis initially laparoscopic and converted to open. She also has a past medical history of diverticular disease. At home patient had two episodes of bright red blood per rectum.? She reported that she had small stools that was mixed large blood.? At the emergency department she had? two more episodes of hematochezia.? With his hematochezia the emergency department patient became lightheaded and diaphoretic.? Before his symptoms of hematochezia started he had abdominal discomfort.? He denies any nausea or vomiting. Emergency Department doctor reports maroon stools on rectal examination; and without any other significant gross pathology. She had a CT scan abdomen pelvis that did show anastomosis and diverticular disease without any etiology of lower GI bleeding. Her hemoglobin was 13 and currently is down to 10. She is still having some bleeding per rectum. [facility] Medical History Anemia Anxiety Diverticulitis Diverticulosis Former smoker GERD (gastroesophageal reflux disease) Hepatitis History of stress test Hypertension Small bowel obstruction Home Medications cyanocobalamin (vitamin B-12) 1,000 mcg/mL injection solution 1,000 mcg IM Q30D 05/17/17 [History Last Taken Unknown] escitalopram oxalate 20 mg tablet 20 mg PO DAILY 05/17/17 [History Last Taken 01/31/23] hydrochlorothiazide 25 mg tablet 25 mg PO DAILY 05/17/17 [History Last Taken 01/31/23] Allergy/AdvReac Type Severity Reaction Status Date / Time cephalexin [From Keflex] Allergy Hives Verified 01/31/23 20:18 cyclobenzaprine Allergy Itching Verified 01/31/23 20:18 [From Flexeril] erythromycin base Allergy Rash Verified 01/31/23 20:18 Penicillins [PCN] Allergy Hives Verified 01/31/23 20:18 hydrocodone [From Vicodin] AdvReac Upset Verified 01/31/23 20:18 Stomach Family History Other Breast cancer Dementia Esophageal cancer Heart disease Rheumatoid arthritis Thyroid disorder Surgical History Hx of appendectomy Social History Smoking Status: Former smoker ROS ROS Narrative Pertinent positives and pertinent negatives as noted in HPI. All other systems were reviewed and are negative Physical Exam Const alert, oriented x3 and no apparent distress HEENT head/scalp atraumatic and moist oral mucous membranes Eyes PERRL and EOMs intact bilaterally Neck supple and no JVD Resp normal respiratory effort, no retractions, no use of accessory muscles and clear to auscultation bilaterally Cardio regular rate, regular rhythm, S1 normal heart sound, S2 normal heart sound, no murmurs, no rub and no gallops GI GI Narrative: Abdomen normal to inspection, normoactive bowel sounds, softly distended, slight tenderness with palpation to outer boundaries of abdomen, no hepatosplenomegaly. Extremity Extremity Narrative: No edema, full ROM, capillary refill less than 3 seconds. Skin Skin Narrative: No rashes. No breakdown. Neuro Neuro Narrative: Cranial nerves II-XII grossly intact, Motor Exam 5/5 strength throughout, Sensory exam intact to light touch and pain Psych Psych Narrative: Normal affect and appropriate. Lab / Micro Data Result Diagrams: 02/01/23 13:43 01/31/23 20:50 Labs: Laboratory Results - last 24 hr 01/31/23 20:50: WBC 10.7, RBC 4.34, Hgb 13.2, Hct 38.4, MCV 88.5, MCH 30.4, MCHC 34.4, RDW Std Deviation 42.4, RDW Coeff of Karthik 13.1, Plt Count 379, MPV 9.8, Immature Gran % (Auto) 0.600, Neut % (Auto) 62.8, Lymph % (Auto) 27.4, [place] % (Auto) 6.9, Eos % (Auto) 1.7, Baso % (Auto) 0.6, Absolute Neuts (auto) 6.7, Absolute Lymphs (auto) 2.92, Nucleated RBC % 0 01/31/23 20:50: Sodium 141, Potassium 3.8, Chloride 108 H, Carbon Dioxide 25.0, Anion Gap 8, BUN 15, Creatinine 1.23 H, Estim Creat Clear Calc 47.81, Est GFR (MDRD) Af Amer 58 L, Est GFR (MDRD) Non-Af 48 L, BUN/Creatinine Ratio 12.2, Glucose 123 H, Calcium 8.2 L 01/31/23 20:50: Lactic Acid 2.3 H* 02/01/23 00:30: Hgb 10.7 L, Hct 33.2 L 02/01/23 00:30: Lactic Acid 1.8 02/01/23 07:25: WBC 8.4, RBC 3.68 L, Hgb 10.6 L, Hct 33.4 L, MCV 90.8, MCH 28.8, MCHC 31.7 L D, RDW Std Deviation 44.2 H, RDW Coeff of Karthik 13.4, Plt Count 259, MPV 9.3, Immature Gran % (Auto) 0.600, Neut % (Auto) 64.3, Lymph % (Auto) 27.4, [place] % (Auto) 5.8, Eos % (Auto) 1.5, Baso % (Auto) 0.4, Absolute Neuts (auto) 5.4, Absolute Lymphs (auto) 2.31, Nucleated RBC % 0 02/01/23 07:25: Total Bilirubin 0.40, Direct Bilirubin 0.11, AST 12 L, ALT 20, Alkaline Phosphatase 65, Total Protein 6.0 L, Albumin 3.1 L, Globulin 2.9 02/01/23 13:43: Hgb 10.3 L, Hct 31.7 L Radiology Impression Abdomen/Pelvis CT 01/31/23 20:37 IMPRESSION: Sigmoid colon diverticulosis without diverticulitis. Anastomotic sutures descending right colon. No acute intra-abdominal pathology. Electronically Signed: Manoj Sparks DO at 22:21 EDT , Assessment & Plan Assessment/Plan (1) Acute lower gastrointestinal bleeding: PLAN: The differential diagnosis for lower GI bleed in this particular patient is diverticular, ischemic, angiodysplasia, anastomotic bleed, stercoral ulcer. She should undergo colonoscopy to evaluate her colon entirely. And if that is negative she will agree to get an upper endoscopy. She was explained alternatives, risk, benefits including outstanding bleeding, infection, sepsis, perforation, need for emergent urgent . She have an ASA of 3. Charges/Coding Visit Charges Inpatient E&M: 62483 Init Hosp L3
[2023-02-01 20:21] VITALS: BP 141/96; PULSE 74; RESP 16; TEMP 36.9; O2SAT 100
[2023-02-02] VITALS (8 sets, daily range): BP systolic 104–133; BP diastolic 63–82; PULSE 68–89; RESP 16; TEMP 36.4–37.1; O2SAT 96–99; BMI 37.1
--- NOTE | 2023-02-02 | COLBX_PTH ---
PATIENT: DOMINIC WINSTON LOC: MS3 U#:[id number] AGE/SX: 57/F ROOM: VT319 RE01/31/[address]: Dr. Atif Fenton MD : 1965 BED: 1 DIS: 02/02/2023 SPEC #: [id number] RECD: 02/02/23 13:49 STATUS: SOUSukh REQ #: [id number] LARRY: 02/02/23 00:[address]: Arden Ponce DEPT: SURGICAL PATHOLOGY RECD BY: Jan Amaya ENTERED: 02/03/23 09:24 SP TYPE: COLON BX OTHR DR: MD Dr. Bernard Barrera MD Dr. Nicholas F Kotsonis, MD Tissues: Ileum, NOS Procedures: Surgery Specimen Level IV Comments: @ Ordering doctor for SUIV edited from to @ by ISAAC at 02/04/23 0807 @ Submitting doctor edited from to @ by RGOOD at 02/04/2307 HEADER OPERATION: Colonoscopy (MAC), biopsy PRE-OP DIAGNOSIS: Acute lower GI bleeding TISSUE SUBMITTED: Terminal ileum ulcer MICROSCOPIC DIAGNOSIS Terminal ileum ulcer, biopsy: Fragments of small intestinal mucosa with congestion, hemorrhage and acute and chronic inflammation. See comment. MURRAY:shelia 02/04/2023 COMMENT Focal cryptitis is noted. Crypt abscesses or granulomas are not seen. Correlation with clinical, endoscopic findings and appropriate follow up are necessary. MICROSCOPIC DESCRIPTION Slides are reviewed. GROSS DESCRIPTION Received in fixative is one container labeled with the patient's name and designated terminal ileum ulcer. The specimen consists of multiple irregular fragments of light summers soft tissue that in aggregate measure 0.8 x 0.6 x 0.1 cm. The specimen is totally submitted in one cassette. / MURRAY:shelia 02/03/2023 TC:2 [facility]: [id number]
[2023-02-02] MEDS: Acetaminophen 325 MG Tablet 650 MG PO (05:31)
[2023-02-02] MEDS: 0.9% Normal Saline 1,000 ML 100 ML IV ×2 (05:33→12:33)
[2023-02-02 06:07] LABS: Absolute Lymphocyte Count 2.23 X10^3/uL (0.83-4.51); Absolute Neutrophil Count 3.2 X10^3/uL (2.0-7.7); Basophil# 0.03 X10^3/uL; Basophil% 0.5 % (0-1); Eosinophil# 0.18 X10^3/uL; Hematocrit 32.3 % (37-47); Hemoglobin 10.5 g/dL (12.0-15.0); Lymphocyte # 2.23 X10^3/ul (0.83-4.51); Lymphocyte % 37.2 % (19-41); Mean Corp Hgb Conc 32.5 g/dL (32-36); Mean Corpuscular Hgb 29.8 pg (27.0-32.0); Mean Corpuscular Volume 91.8 fL (81-99); Mean Platelet Vol. 9.2 fl (6.2-12.0); Monocyte# 0.37 X10^3/uL; Monocyte% 6.2 % (0-10); NRBC Flagged by Analyzer 0 % (0-5); Neutrophil # 3.15 X10^3/uL (2.7-7.7); Neutrophil % 52.6 % (47-70); Platelet Count 230 K/mm3 (150-450); RBC Distribution Width CV 13.8 % (11.6-14.6); RBC Distribution Width SD 46.3 fl (35.1-43.9); Red Blood Count 3.52 M/mm3 (4.2-5.4)
[2023-02-02 06:40] LABS: Anion Gap 3 (5-15); BUN 7 mg/dL (7-18); BUN/Creat Ratio 8.7 RATIO (10-20); Calcium,Total 7.7 mg/dL (8.5-10.1); Chloride 113 mmol/L (98-107); EST Glomerular Filtration Rate 78 mL/min (>60); Est Glom Filt Rate - Afr Amer 95 mL/min (>60); Estimated Creatinine Clearance 73.51 ml/min; Glucose 103 mg/dL (74-106); Potassium 3.7 mmol/L (3.5-5.1); Sodium Level 143 mmol/L (136-145)
--- NOTE | 2023-02-02 09:25 | DCINST_ITS ---
Discharge Instructions Diet Discharge Diet: No restrictions Activity Discharge Activity: Return to Normal Activity Dressing / Incision Call your doctor if you observe: Fever of 101 or Higher, Shortness of breath, Dizziness, Fainting spells, Swelling in the ankles, Chest pain and Increased palpitations (irregular heartbeat) Follow Up Care Test Results: Test results from this visit will be discussed in further detail at your follow- up appointment, if applicable. Discharge Plan Admission Admit Date/Time: 01/31/23 23:08 Attending Provider: Atif Fenton Primary Care Provider: Janine Bolton Consulting Providers: Bernard Preciado Instructions Patient Instructions: ED Lower GI Bleeding (Stable) Discharge Orders/Prescriptions Prescriptions: Continued cyanocobalamin (vitamin B-12) 1,000 MCG/ML solution 1,000 mcg IM Q30D Label Comments: PERNICIOUS ANEMIA hydrochlorothiazide 25 MG tablet 25 mg PO DAILY Label Comments: HTN escitalopram oxalate 20 MG tablet 20 mg PO DAILY Label Comments: ANXIETY Referrals / Follow Up: Janine Bolton MD [Primary Care Provider] - Within 1 Week Disposition Disposition (needs filled in before D/C Order can be placed): Home, Self Care
[2023-02-02] MEDS: Escitalopram Oxalate 20 MG Tablet PO (09:43)
[2023-02-02] MEDS: hydroCHLOROthiazide 25 MG Tablet PO (09:45)
--- NOTE | 2023-02-02 10:03 | PHA.DC.MR ---
Pharmacy Service has performed discharge medication reconciliation for this patient. The patient's discharge medication list was reviewed for discrepancies and discrepancies were resolved. Home Medications cyanocobalamin (vitamin B-12) 1,000 mcg/mL injection solution 1,000 mcg IM Q30D 05/17/17 escitalopram oxalate 20 mg tablet 20 mg PO DAILY 05/17/17 hydrochlorothiazide 25 mg tablet 25 mg PO DAILY 05/17/17
--- NOTE | 2023-02-02 11:03 | NURSING ---
pt transported off unit to endo at this time via bed
--- NOTE | 2023-02-02 11:42 | PN.HOSP_ITS ---
Reason for Visit Reason for Visit: Diagnoses Acidosis, unspecified (01/31/23) Diverticulosis of large intestine without perforation or abscess with bleeding (01/31/23) Gastrointestinal hemorrhage, unspecified (01/31/23) Personal history of other diseases of the circulatory system (01/31/23) Subjective Subjective Patient states bowel prep has reduced her bloated and uncomfortable abdominal feelings quite a bit, reports still feeling a little tender with palpation; denies nausea and vomiting. States that her known GI doctor's office has still not returned her phone call for an appointment and is glad she stayed in the hospital to complete the colonoscopy here as discussed amongst her family yesterday. Objective Data Objective Data Vital Signs: Vital Signs Temp Pulse Resp BP Pulse Ox O2 Del Method 97.8 F 79 16 133/82 H 98 Room Air 02/02/23 09:35 02/02/23 09:35 02/02/23 09:35 02/02/23 09:35 02/02/23 09:35 02/02/23 09:35 Oxygen Delivery Method Room Air Weight: 104.4 kg Body Mass Index (BMI) 37.1 Intake & Output: Intake and Output for Last 24 Hours 01/31/23 02/01/23 02/02/23 23:59 23:59 23:59 Intake Total 2841.25 / 3441.25 1526.67 / 1526.67 Balance 2841.25 / 3441.25 1526.67 / 1526.67 Lab / Micro Data Result Diagrams: 02/02/23 05:25 02/02/23 05:25 Labs: Laboratory Results - last 24 hr 02/01/23 13:43: Hgb 10.3 L, Hct 31.7 L 02/02/23 05:25: WBC 6.0, RBC 3.52 L, Hgb 10.5 L, Hct 32.3 L, MCV 91.8, MCH 29.8, MCHC 32.5, RDW Std Deviation 46.3 H, RDW Coeff of Karthik 13.8, Plt Count 230, MPV 9.2, Immature Gran % (Auto) 0.500, Neut % (Auto) 52.6, Lymph % (Auto) 37.2, [place] % (Auto) 6.2, Eos % (Auto) 3.0, Baso % (Auto) 0.5, Absolute Neuts (auto) 3.2, Absolute Lymphs (auto) 2.23, Nucleated RBC % 0 02/02/23 05:25: Sodium 143, Potassium 3.7, Chloride 113 H, Carbon Dioxide 27.0, Anion Gap 3 L, BUN 7, Creatinine 0.80, Estim Creat Clear Calc 73.51, Est GFR (MDRD) Af Amer 95, Est GFR (MDRD) Non-Af 78, BUN/Creatinine Ratio 8.7 L, Glucose 103, Calcium 7.7 L Physical Exam Const alert, oriented x3 and no apparent distress HEENT moist oral mucous membranes Head and Scalp: normocephalic Eyes PERRL and EOMs intact bilaterally Neck supple, no JVD and no carotid bruits Chest inspection of chest normal Resp normal respiratory effort, no retractions, no use of accessory muscles and clear to auscultation bilaterally Cardio regular rate, regular rhythm, S1 normal heart sound, S2 normal heart sound, no murmurs, no rub and no gallops GI GI Narrative: Abdomen normal to inspection with slightly hyperactive bowel sounds, softly distended, slight tenderness remains to palpation to outer boundaries of abdomen, no hepatosplenomegaly, no guarding. Extremity normal to inspection and full ROM Neuro CN's II-XII intact bilaterally, moves all extremities, no focal motor deficits and no sensory deficits noted Motor Exam: strength 5/5 throughout Psych Psych Narrative: Affect normal and cooperative. Assessment & Plan Assessment/Plan (1) Acute lower gastrointestinal bleeding: PLAN: Plan Assessment 1. Acute lower gastrointestinal bleeding/Diverticular hemorrhage 2. Acidosis, lactic 3. History of hypertension 4. History of vitamin B-12 deficiency 5. History of anxiety/depression Plan 1. Lower GI Bleed - bleeding noted to have been maroon/brighter red in color, no localized areas of pain/discomfort - hemoglobin dropped 2.5gm from ER admission to timed recheck 3.5hrs later, but then stabilized at 0725. - hemoglobin level showing an increase at 10.5g/dL this morning compared to last value of 10.3 from 02/01. - she was referred previously by PCP for routine colonoscopy, but date had not yet been set; she is in the process of calling her previous GI consult to explain current events in attempt to get a colonoscopy date sooner rather than later;pt has yet to hear back from GI office. - patient agreed to stay overnight and do bowel prep for colonoscopy scheduled for today with - patient reported some dark blood noted in stools from bowel prep at first that cleared up 2. Lactic acidosis - corrected with IVF infusion - no s/sx of infection/septicemia, no leukocytosis 3. Hypertension - SBPs are trending 113-142mmHg - continue home regimen of hydrochlorothiazide 4. B-12 deficiency - home regimen of cyanocobalamin on hold d/t acute GIB event - IM dosing is every 30 days, patient reports that it's not due 5. Anxiety/depression - continue home regimen with escitalopram - no reports of depression, denies anhedonia DVT: SCDs
--- NOTE | 2023-02-02 12:21 | OP.COLON_ITS ---
Patient Name: Lilly Nelson Procedure Date: 02/02/2023 7:22 AM Date of : 1965 Age: 57 Procedure: Colonoscopy Indications: Hematochezia Providers: Arden Ponce DO Medicines: Monitored Anesthesia Care Patient Profile: This is a 57 year old female. Refer to note in patient chart for documentation of history and physical. Last Colonoscopy: 5 years ago. Complications: No immediate complications. Procedure: Pre-Anesthesia Assessment: - Prior to the procedure, a History and Physical was performed, and patient medications and allergies were reviewed. The risks and benefits of the procedure and the sedation options and risks were discussed with the patient. All questions were answered and informed consent was obtained. Patient identification and proposed procedure were verified by the physician in the pre-procedure area. Mental Status Examination: alert and oriented. Airway Examination: normal oropharyngeal airway and neck mobility. Respiratory Examination: clear to auscultation. CV Examination: normal. Prophylactic Antibiotics: The patient does not require prophylactic antibiotics. Prior Anticoagulants: The patient has taken no previous anticoagulant or antiplatelet agents. ASA Grade Assessment: II - A patient with mild systemic disease. After reviewing the risks and benefits, the patient was deemed in satisfactory condition to undergo the procedure. The anesthesia plan was to use monitored anesthesia care (MAC). Immediately prior to administration of medications, the patient was re-assessed for adequacy to receive sedatives. The heart rate, respiratory rate, oxygen saturations, blood pressure, adequacy of pulmonary ventilation, and response to care were monitored throughout the procedure. The physical status of the patient was re-assessed after the procedure. After I obtained informed consent, the scope was passed under direct vision. Throughout the procedure, the patient's blood pressure, pulse, and oxygen saturations were monitored continuously. The was introduced through the anus and advanced to the cecum, identified by appendiceal orifice and ileocecal valve. The colonoscopy was performed without difficulty. The patient tolerated the procedure well. The quality of the bowel preparation was good. Scope In: 11:59:51 AM Scope Withdrawal Time 0 hours 10 minutes 25 seconds Scope Out: 12:13:40 PM Total Procedure Duration Time 0 hours 13 minutes 49 seconds Findings: The perianal and digital rectal examinations were normal. Non-bleeding internal hemorrhoids were found during retroflexion. The hemorrhoids were Grade II (internal hemorrhoids that prolapse but reduce spontaneously). A few small-mouthed diverticula were found in the recto-sigmoid colon, sigmoid colon and cecum. There was evidence of a prior end-to-side ileo-colonic anastomosis in the ascending colon. This was patent and was characterized by ulceration. The anastomosis was traversed. Biopsies were taken with a cold forceps for histology. Verification of patient identification for the specimen was done. Estimated blood loss was minimal. Impression: - Non-bleeding internal hemorrhoids. - Diverticulosis in the recto-sigmoid colon, in the sigmoid colon and in the cecum. - Patent end-to-side ileo-colonic anastomosis, characterized by ulceration. Biopsied. Recommendation: - Discharge patient to home. - Resume previous diet. - Continue present medications. - Await pathology results. - Repeat colonoscopy for surveillance based on pathology results. Procedure Code(s): --- Professional --- 45496, Colonoscopy, flexible; with biopsy, single or multiple CPT copyright 2017 [employer]. All rights reserved. The codes documented in this report are preliminary and upon housing specialist review may be revised to meet current compliance requirements. Arden Ponce DO 02/02/2023 12:20:39 PM This report has been signed electronically. Number of Addenda: 0 Note Initiated On: 02/02/2023 7:22 AM
--- NOTE | 2023-02-02 12:22 | OP.CCLET_ITS ---
02/02/2023 Janine Bolton [address] [place] [address] Re : Colonoscopy procedure for Lilly Leslie Dear Dr. Bolton This procedure was performed on Thursday, February 02, 2023. My impressions and recommendations are as follows: Impressions : - Non-bleeding internal hemorrhoids. - Diverticulosis in the recto-sigmoid colon, in the sigmoid colon and in the cecum. - Patent end-to-side ileo-colonic anastomosis, characterized by ulceration. Biopsied. Recommendations : - Discharge patient to home. - Resume previous diet. - Continue present medications. - Await pathology results. - Repeat colonoscopy for surveillance based on pathology results. My findings are described in the full procedure note, which is enclosed. If I can be of further assistance, please feel free to contact me at . Sincerely, Arden Ponce, 02/02/2023 12:20:39 PM This report has been signed electronically.
--- NOTE | 2023-02-02 14:45 | PCM.DC.SUM ---
Providers Date of Admission: 01/31/23 Primary Care Physician: Dr. Janine Bolton MD Reason For Visit: ACUTE DIVERTICULAR BLEED Diagnosis Discharge Diagnosis (1) Acute lower gastrointestinal bleeding: Status: Acute Code(s): K92.2 - Gastrointestinal hemorrhage, unspecified Medications at Discharge Home Medications cyanocobalamin (vitamin B-12) 1,000 mcg/mL injection solution 1,000 mcg IM Q30D 05/17/17 escitalopram oxalate 20 mg tablet 20 mg PO DAILY 05/17/17 hydrochlorothiazide 25 mg tablet 25 mg PO DAILY 05/17/17 Hospital Course Operations None Procedures Colonoscopy Summary of Care Provided Minutes Spent on Discharge: 32 Hospital Course: Per HPI: DOMINIC WINSTON, is a 57 F with a significant history of hypertension; diverticulitis; appendectomy; bowel obstruction who presents to the emergency department with bright red blood per rectum that started about 2 hours before presentation.? At home patient had two episodes of bright red blood per rectum.? She reported that she had small stools that was mixed large blood.? At the emergency department she had? two more episodes of hematochezia.? With his hematochezia the emergency department patient became lightheaded and diaphoretic.? Before his symptoms of hematochezia started he had abdominal discomfort.? He denies any nausea or vomiting. Incidentally patient went to his PCPs office on the same day of presentation for routine physicals.? At the PCPs appointment patient was advised that it was time for him to have? a repeat colonoscopy since the last one was 5 years ago.? Reportedly the last colonoscopy she had some benign tumors that were removed.? A referral was sent to Dr. Cortez GI specialist and patient is waiting for an appointment for colonoscopy.? Emergency Department doctor reports maroon stools on rectal examination; and without any other significant gross pathology. Emergency Department doctor discussed the case with meat processor, Dr. Ponce and the plan is to observe patient at the hospital and trend H&H. Hospital Course: 1. Lower GI bleed secondary to a ileocolonic anastomotic ulceration secondary to an undigested pill?57-year-old female presented to the hospital after 1 episode of GI bleeding. Hemoglobin dropped about 3 g during her admission though part of this was due to hemodilution from IV fluids. Her hemoglobin did stabilize and she underwent bowel prep and colonoscopy today. The colonoscopy demonstrated an ulceration at the staple line secondary to an undigested pill. She had an ileocolonic anastomosis secondary to ruptured appendicitis. Discussed with her the plan for discharge today she expressed understanding of the risk benefits going home and would like to go home today. I do recommend that she follow-up with her PCP in 3 to 5 days for outpatient monitoring and evaluation. 2. Hypertension, anxiety, and depression are all chronic medical conditions which complicate her care. Her home medications were continued where appropriate Physical Exam Narrative General: Alert, Oriented x3, Cooperative, No apparent distress HEENT: Atraumatic, PERRLA, EOMI, Normocephalic Oral: Moist Mucosa Neck: Supple, No JVD Lungs: Clear to auscultation, Normal air movement, No rhonchi, No wheeze, No rales Cardiovascular: Regular rate, Regular Rhythm, Normal S1, Normal S2, No murmurs Abdomen: Soft, Non Tender, Non-Distended, No Hepato-splenomegaly Extremities: No edema, Capillary Refill Less than 3 Seconds Skin: No rashes, No breakdown Musculoskeletal: No Tenderness to Palpation of Joints or Extremities Neurological: Cranial nerves II-XII grossly intact, Motor Exam 5/5 strength throughout, Sensory exam intact to light touch and pain Psych/Mental Status: Normal Affect, Appropriate Weight / BMI Weight Weight: 230 lb 2.601 oz Body Mass Index (BMI) 37.1 ABG / Lab / Microbiology Data Result Diagrams: 02/02/23 05:25 02/02/23 05:25 Laboratory: Laboratory Results - last 24 hr 02/02/23 05:25: WBC 6.0, RBC 3.52 L, Hgb 10.5 L, Hct 32.3 L, MCV 91.8, MCH 29.8, MCHC 32.5, RDW Std Deviation 46.3 H, RDW Coeff of Karthik 13.8, Plt Count 230, MPV 9.2, Immature Gran % (Auto) 0.500, Neut % (Auto) 52.6, Lymph % (Auto) 37.2, Levy % (Auto) 6.2, Eos % (Auto) 3.0, Baso % (Auto) 0.5, Absolute Neuts (auto) 3.2, Absolute Lymphs (auto) 2.23, Nucleated RBC % 0 02/02/23 05:25: Sodium 143, Potassium 3.7, Chloride 113 H, Carbon Dioxide 27.0, Anion Gap 3 L, BUN 7, Creatinine 0.80, Estim Creat Clear Calc 73.51, Est GFR (MDRD) Af Amer 95, Est GFR (MDRD) Non-Af 78, BUN/Creatinine Ratio 8.7 L, Glucose 103, Calcium 7.7 L D/C Instructions Discharge Diet: No restrictions Call your doctor if you observe: Fever of 101 or Higher, Shortness of breath, Dizziness, Fainting spells, Swelling in the ankles, Chest pain and Increased palpitations (irregular heartbeat) Meaningful Use Info Meaningful Use Diagnoses (Choose all that apply): None applicable Discharge Plan Admission Admit Date/Time: 01/31/23 23:08 Attending Provider: Atif Fenton Primary Care Provider: Janine Bolton Consulting Providers: Bernard Preciado Instructions Forms: Work / School Excuse Patient Instructions: ED Lower GI Bleeding (Stable) Discharge Orders/Prescriptions Prescriptions: Continued cyanocobalamin (vitamin B-12) 1,000 MCG/ML solution 1,000 mcg IM Q30D Label Comments: PERNICIOUS ANEMIA hydrochlorothiazide 25 MG tablet 25 mg PO DAILY Label Comments: HTN escitalopram oxalate 20 MG tablet 20 mg PO DAILY Label Comments: ANXIETY Referrals / Follow Up: Janine Bolton MD [Primary Care Provider] - Within 1 Week Disposition Disposition (needs filled in before D/C Order can be placed): Home, Self Care Charges/Coding Visit Charges Inpatient E&M: 47162 Disch Hosp >30min
== END 2023-02-02 14:33 | disposition home or self-care (01) ==
LOC: ED 22:55 → MS3 23:22
PROVIDERS: Anesthesiology; Internal Medicine Gastroenterology; Admitting Provider Hospitalist; Emergency Provider Emergency Medicine; PCP Family Medicine; Visit Provider Family Medicine
PROC: 0DJD8ZZ Inspection of Lower Intestinal Tract, Via Natural or Artificial Opening Endoscopic (ICD-10-PCS; CPT 45378; principal; 2023-02-02 12:10)
DX: K63.3 Ulcer of intestine (principal); K57.31 Diverticulosis of large intestine without perforation or abscess with bleeding; Z87.891 Personal history of nicotine dependence; R42 Dizziness and giddiness; K64.1 Second degree hemorrhoids; I10 Essential (primary) hypertension; F41.9 Anxiety disorder, unspecified; Z79.899 Other long term (current) drug therapy; F32.A Depression, unspecified; E53.8 Deficiency of other specified B group vitamins; E87.20 Acidosis, unspecified
CPT/HCPCS: 45380; 36415; 74177; 80048; 80076; 83605; 85014; 85018; 85025; 88305; 93005; 96360; 96361; 99221; 99284; J7030; Q9967; A4216; G0378; J2405

== ENCOUNTER → 2023-02-03 | Outpatient (CLI) | payer OTHER, SELFPAY ==
--- NOTE | 2023-02-03 16:32 | BI_ITS ---
MAMMOGRAPHY - BILATERAL SCREENING REASON FOR EXAM: Female, 57 years old. Routine annual screening examination. PERTINENT HISTORY: Sister with breast cancer. Mother with breast cancer. Grandmother with breast cancer. TECHNIQUE: Digital bilateral breast vlad (3D mammographic acquisition) in the CC and MLO projections. 2-D mediolateral oblique (MLO) and craniocaudad (CC) views of both breasts were obtained. CAD: Full Field Digital Mammography with Computer Added Detection was performed. COMPARISON: Comparison is made with prior study dated January 29, 2022 and January 23, 2021. FINDINGS: Breast Composition: The breasts are heterogeneously dense, which may obscure small masses. There are no dominant masses or suspicious calcifications. Stable small benign appearing bilateral axillary lymph nodes. No other significant abnormalities are identified. There has been no significant change since the prior study. BI/SCRN MAMM (CAD)W/VLAD BILAT IMPRESSION: Stable bilateral screening mammogram. Yearly follow-up mammogram recommended. (A) ASSESSMENT CATEGORY: BIRADS Category 2: Benign. A letter regarding these results will be sent to the patient by the facility within 30 days. Approximately 10% of breast cancers are not detected by mammography. A normal mammogram should not delay biopsy of a clinically suspicious abnormality. [id number] Electronically Signed: Artis Rodriguez MD at 8:18 EDT ,
== END | disposition home or self-care (01) ==
LOC: OPBI 16:31
PROVIDERS: PCP Family Medicine; Referring Provider Family Medicine; Visit Provider Family Medicine
DX: Z12.31 Encounter for screening mammogram for malignant neoplasm of breast (principal); Z80.3 Family history of malignant neoplasm of breast
CPT/HCPCS: 77063; 77067

== ENCOUNTER → 2023-05-30 | Outpatient (CLI) | payer OTHER, SELFPAY ==
[2023-06-02 17:07] LABS: Anti-Parietal Cell AB, QN 2.7 Units (0.0-20.0)
== END | disposition home or self-care (01) ==
PROVIDERS: PCP Family Medicine; Referring Provider Internal Medicine Gastroenterology; Visit Provider Internal Medicine Gastroenterology
DX: E53.8 Deficiency of other specified B group vitamins (principal)
CPT/HCPCS: 36415; 83516; 86340

== ENCOUNTER → 2024-02-07 | Outpatient (CLI) | payer OTHER, SELFPAY ==
[2024-02-07 18:05] LABS: Protein, Urine (Random) 13.4 mg/dL (<11.9); Protein:Creat Ratio 116 mg/g CRE (0-200)
[2024-02-07 18:30] LABS: Anion Gap 6 (5-15); BUN 14 mg/dL (7-18); BUN/Creat Ratio 15.4 RATIO (10-20); Calcium,Total 8.9 mg/dL (8.5-10.1); Chloride 104 mmol/L (98-107); Cholesterol 240 mg/dL (200); Creatinine, Serum 0.91 mg/dL (0.55-1.02); EST Glomerular Filtration Rate 68 mL/min (>60); Est Glom Filt Rate - Afr Amer 82 mL/min (>60); Glucose 91 mg/dL (74-106); High Density Lipoprotein 50 mg/dL; Potassium 3.4 mmol/L (3.5-5.1); Sodium Level 137 mmol/L (136-145); Triglycerides 212 mg/dL; Very Low Density Lipoprotein 42 mg/dL (5-40)
== END | disposition home or self-care (01) ==
PROVIDERS: PCP Family Medicine; Referring Provider Family Medicine; Visit Provider Family Medicine
DX: I10 Essential (primary) hypertension (principal)
CPT/HCPCS: 36415; 80048; 80061; 82570; 84156

== ENCOUNTER → 2024-03-06 | Outpatient (CLI) | payer OTHER, SELFPAY ==
--- NOTE | 2024-03-06 15:14 | BI_ITS ---
MAMMOGRAPHY - BILATERAL SCREENING REASON FOR EXAM: Female, 58 years old. Routine annual screening examination. PERTINENT HISTORY: Sister with breast cancer. Mother with breast cancer. Grandmother with breast cancer. TECHNIQUE: Digital bilateral breast vlad (3D mammographic acquisition) in the CC and MLO projections. 2-D mediolateral oblique (MLO) and craniocaudad (CC) views of both breasts were obtained. CAD: Full Field Digital Mammography with Computer Added Detection was performed. COMPARISON: Comparison is made with prior study dated February 03, 2023 and January 29, 2022. FINDINGS: Breast Composition: The breasts are heterogeneously dense, which may obscure small masses. There are no dominant masses or suspicious calcifications. Stable small benign appearing bilateral axillary lymph nodes. No other significant abnormalities are identified. There has been no significant change since the prior study. BI/SCRN MAMM (CAD)W/VLAD BILAT IMPRESSION: Stable bilateral screening mammogram. Yearly follow-up mammogram recommended. (A) ASSESSMENT CATEGORY: BIRADS Category 2: Benign. A letter regarding these results will be sent to the patient by the facility within 30 days. Approximately 10% of breast cancers are not detected by mammography. A normal mammogram should not delay biopsy of a clinically suspicious abnormality. [id number] Electronically Signed: Artis Rodriguez MD at 8:17 EDT ,
== END | disposition home or self-care (01) ==
LOC: OPBI 15:14
PROVIDERS: PCP Family Medicine; Referring Provider Family Medicine; Visit Provider Family Medicine
DX: Z12.31 Encounter for screening mammogram for malignant neoplasm of breast (principal); Z80.3 Family history of malignant neoplasm of breast
CPT/HCPCS: 77063; 77067

== ENCOUNTER → 2025-03-25 | Outpatient (CLI) | payer OTHER, SELFPAY ==
--- NOTE | 2025-03-25 16:07 | BI_ITS ---
EXAM: SCRN MAMM (CAD)W/VLAD BILAT DATE: 03/25/2025 CLINICAL HISTORY: F, Age 59 y/o , SCREENING TECHNIQUE: SCRN MAMM (CAD)W/VLAD BILAT COMPARISON: Prior exam(s) were compared FINDINGS: TISSUE DENSITY: The breasts are heterogeneously dense, which may obscure small masses. Bilateral Breast Mammographic Findings: No suspicious masses, calcifications or other abnormalities are identified. BI/SCRN MAMM (CAD)W/VLAD BILAT IMPRESSION: No mammographic evidence of malignancy in either breast OVERALL FINAL ASSESSMENT BI-RADS 1: NEGATIVE. RECOMMENDATION: Routine annual follow-up in 1 Year A letter with findings and recommendations will be mailed to the patient. Reading Location: [id number]
== END | disposition home or self-care (01) ==
LOC: OPBI 16:06
PROVIDERS: PCP Family Medicine; Referring Provider Family Medicine; Visit Provider Family Medicine
DX: Z12.31 Encounter for screening mammogram for malignant neoplasm of breast (principal)
CPT/HCPCS: 77063; 77067